=== PATIENT | male | born 1985 | race Caucasian/White ===

== ENCOUNTER 2017-07-29 19:02 | Emergency (ER) | payer BC, OTHER ==
[~2017-07-29] VITALS: Ht 185.4 cm; Wt 93.8 kg
[2017-07-29 20:07] LABS: BASOPHILS ABSOLUTE AUTO 0.02 K/mm3 (0.00-0.23); BASOPHILS PERCENT AUTO 0 % (0-2); EOSINOPHILS ABSOLUTE AUTO 0.08 K/mm3 (0.00-0.68); EOSINOPHILS PERCENT AUTO 1 % (0-6); Hematocrit 40.7 % (37.0-53.0); Hemoglobin 13.9 g/dL (13.5-17.5); IMMATURE GRAN ABSOLUTE AUTO 0.05 K/mm3 (0.00-0.10); IMMATURE GRAN PERCENT AUTO 0 % (0-1); LYMPHOCYTES ABSOLUTE AUTO 1.89 K/mm3 (0.84-5.20); LYMPHOCYTES PERCENT AUTO 12 % (21-46); MONOCYTES ABSOLUTE AUTO 1.37 K/mm3 (0.16-1.47); MONOCYTES PERCENT AUTO 9 % (4-13); Mean Corpuscular HGB 33.2 pg (26.0-34.0); Mean Corpuscular HGB Conc 34.2 g/dL (31.5-36.5); Mean Corpuscular Volume 97 fL (80-100); Mean Platelet Volume 9.7 fL (9.1-12.4); NEUTROPHILS ABSOLUTE AUTO 12.15 K/mm3 (1.96-9.15); NEUTROPHILS PERCENT AUTO 78 % (41-73); Platelet Count 226 K/mm3 (150-400); RDW Coefficient Variation 13.5 % (11.7-14.2); RDW Standard Deviation 48.1 fL (35.1-46.3); Red Blood Cell Count 4.19 M/mm3 (4.30-5.90); White Blood Cell Count 15.56 K/mm3 (4.00-11.30)
[2017-07-29 20:24] LABS: Alanine Aminotransfer (ALT/SGP 47 U/L (12-78); Albumin, Blood 3.7 g/dL (3.4-5.0); Alk Phos 101 U/L (50-136); Anion Gap 5 mmol/L (6-16); Aspartate Aminotrans (AST/SGOT 20 U/L (12-37); Bilirubin, Total 0.6 mg/dL (0.1-1.0); Blood Urea Nitrogen 10 mg/dL (8-24); Bun/Creatinine Ratio 9.7 (12.0-20.0); CO2, Blood 29 mmol/L (21-32); Calcium, Blood 8.9 mg/dL (8.5-10.1); Chloride, Blood 104 mmol/L (98-108); Creatinine, Blood 1.03 mg/dL (0.60-1.20); Globulin, Blood 3.7 g/dL (2.2-4.0); Glomerular Filtration Rate >60 (60-); Glucose, Blood 108 mg/dL (70-99); Potassium, Blood 3.6 mmol/L (3.5-5.5); Sodium, Blood 138 mmol/L (136-145); Total Protein, Blood 7.4 g/dL (6.4-8.2)
[2017-07-29] MEDS ORDERED: Vibramycin100 MG PO (20:57)
[2017-07-29] MEDS ORDERED: Percocet 5-3251 EACH PO (20:57)
== END 2017-07-29 22:30 | disposition home or self-care (01) ==
LOC: ER 19:02
PROVIDERS: Physician Assistant
DX: L03.317 Cellulitis of buttock (principal); R59.0 Localized enlarged lymph nodes
CPT/HCPCS: 36415; 72193; 80053; 83605; 85025; 85730; 87040; 96365; 96366; 96375; 99284; J2405; J3010; J3370; J7030; J7050; Q9967

== ENCOUNTER → 2018-04-08 | Outpatient (CLI) | payer OTHER ==
[~2018-04-08] MED LIST: Percocet 5-3251 EACH PO; Vibramycin100 MG PO
== END ==
LOC: LAB EV 17:12 → LAB SHORT 17:12
DX: L03.221 Cellulitis of neck (principal)
CPT/HCPCS: 87070; 87077; 87147; 87186; 87205

== ENCOUNTER → 2020-09-28 | Outpatient (CLI) | payer BC | LOC: LAB 07:52 → LAB SHORT 07:52 | DX: D17.9 Benign lipomatous neoplasm, unspecified (principal); D17.21 Benign lipomatous neoplasm of skin and subcutaneous tissue of right arm; D17.39 Benign lipomatous neoplasm of skin and subcutaneous tissue of other sites | CPT/HCPCS: 88304 ==

== ENCOUNTER 2021-04-28 07:46 | Day surgery (SDC) | payer OTHER ==
[~2021-04-28] VITALS: Ht 185.4 cm; Wt 99.4 kg
--- NOTE | 2021-04-28 09:38 | NUR ---
04/28/21 0938 Arabella Dover INJECTED BY DR. STONE AT 0921.
== END 2021-04-28 11:11 | disposition home or self-care (01) ==
LOC: ORSCSDS 07:46
PROVIDERS: Otolaryngology
PROC: 09BM0ZZ Excision of Nasal Septum, Open Approach (ICD-10-PCS; principal; 2021-04-28 09:00)
PROC: 09SL0ZZ Reposition Nasal Turbinate, Open Approach (ICD-10-PCS; principal; 2021-04-28 09:00)
DX: J34.2 Deviated nasal septum (principal); J34.3 Hypertrophy of nasal turbinates; Z87.891 Personal history of nicotine dependence
CPT/HCPCS: A9270; J0171; J1100; J2250; J2405; J2704; J2710; J3010; J7120

== ENCOUNTER 2022-04-02 18:14 | Emergency (ER) | payer OTHER ==
[~2022-04-02] VITALS: Ht 185.4 cm; Wt 97.5 kg
== END 2022-04-02 22:06 | disposition home or self-care (01) ==
LOC: ER 18:14
DX: U07.1 COVID-19 (principal)
CPT/HCPCS: 71045; J1885